=== PATIENT | female | born 1985 | race American Indian/Alaskan Native ===

== ENCOUNTER 2019-02-10 10:42 | Outpatient (CLI) | payer MEDICAID ==
--- NOTE | 2019-02-10 14:54 | Mammography Report ---
BILATERAL DIGITAL SCREENING MAMMOGRAMS WITH CAD INDICATION: Screening. COMPARISONS: None available. However, she indicated that she had had a previous mammogram in [place], [place]. FINDINGS: Craniocaudal and mediolateral oblique views of both breasts were obtained using 2-D digital acquisition. In addition to standard review, the examination was analyzed for possible abnormalities using a computer-assisted detection device (iCAD). The breast tissue is heterogeneously dense, which may obscure small masses. A partially circumscribed left focal asymmetry requires comparison with the prior mammogram or additi onal imaging. Additional bilateral circumscribed benign-appearing masses and heavily calcified masses . IMPRESSION: Comparison with the previous mammogram is required. We will attempt to obtain a prior mammogram for c omparison. If we do not obtain a prior mammogram within 30 days, a revised report will be issued jemma mmending a recall for additional imaging. Please be advised that the patient should not schedule an a ppointment for return until adequate time (at least 2 weeks) has passed breast to obtain the prior ma mmogram. BI-RADS CATEGORY 0: INCOMPLETE - NEED ADDITIONAL IMAGING EVALUATION AND/OR PRIOR MAMMOGRAMS FOR COMP ARISON Information is entered into a reminder system for a target due date for the next mammogram. The resul ts and recommendations were sent to the patient by mail. Signer Name: Fab Telles MD Signed: 02/10/2019 2:50 PM Workstation Name: [id number]
== END 2019-02-10 10:43 | disposition home or self-care (01) ==
LOC: SPVWC 10:42
PROVIDERS: ATTEND Family Medicine
DX: Z12.31 Encounter for screening mammogram for malignant neoplasm of breast (principal)
CPT/HCPCS: 77067

== ENCOUNTER 2019-07-21 07:36 | Day surgery (SDC) | payer MEDICAID ==
[2019-07-21] MEDS ORDERED: LACTATED RINGERS 1,000 ML ONE (08:25)
[2019-07-21] MEDS ORDERED: FAMOTIDINE 20 MG TAB PO NR (08:50)
[2019-07-21] MEDS ORDERED: LACTATED RINGERS 1,000 ML IV SCH (08:50)
[2019-07-21] MEDS ORDERED: MIDAZOLAM 2 MG/2 ML INJ IV NR (08:50)
--- NOTE | 2019-07-21 08:51 | Anesthesia Consultation ---
Anesthesia Consult and Med Hx Date of service: 07/21/19 - Airway Anesthetic Teeth Evaluation: Good ROM Head & Neck: Adequate Mental/Hyoid Distance: Adequate Mallampati Class: Class II Intubation Access Assessment: Good - Pulmonary Exam CTA: Yes - Cardiac Exam Cardiac Exam: No Murmur - Pre-Operative Health Status ASA Pre-Surgery Classification: ASA1 Proposed Anesthetic Plan: General - Central Nervous System Hx Psychiatric Problems: No - Other Systems Hx Cancer: No
--- NOTE | 2019-07-21 08:51 | Anesthesia Day of Surgery ---
Anesthesia Day of Surgery - Day of Surgery Patient Examined: Yes Patient H&P Reviewed: Yes Patient is NPO: Yes
--- NOTE | 2019-07-21 09:15 | Short Stay Summary ---
Short Stay Documentation Date of service: 07/21/19 Narrative H&P: Pt is a 34yo BF LMP 07/19/20 presents for surgical evaluation and treatment of endometrial polyps. She complained of prolonged heavy vaginal bleeding and pelvic u/s showed an enlarged uterus 10 x 7 x 5cm with endometrial polyp. She now presents for a Hysteroscopy with Polypectomy using Myosure. - History Principal diagnosis: Endometrial polyp H&P: obtained from office Past Medical History: No medical history Past Surgical History: , Other (breast surgery) Social history: no significant social history, - Allergies and Medications Current Medications: Allergies iodine Allergy (Verified 07/11/19 12:06) Unknown Home Medications Medication Instructions Recorded Confirmed Last Taken Type Ibuprofen [Motrin 800 MG tab] 800 mg PO Q8H PRN 07/11/19 07/11/19 Unknown History Active Medications Famotidine (Pepcid) 20 mg PO PREOP NR Lactated Ringer's (Lactated Ringers) 1,000 mls @ 100 mls/hr IV DIRECT JOSE Midazolam HCl (Versed) 2 mg IV PREOP NR Stop: 07/21/19 23:59 - Physical exam General appearance: no acute distress Integumentary: no rash HEENT: Atraumatic Lungs: Clear to auscultation Breasts: deferred Heart: Regular rate Gastrointestinal: normal Female Genitourinary: deferred Rectal Exam: deferred Extremities: no ischemia, No edema Neurological: Normal gait, Normal speech - Brief post op/procedure progress note Date of procedure: 07/21/19 Pre-op diagnosis: 1. Menorrhagia 2. Endometrial polyp Post-op diagnosis: same Procedure: 1. Hysteroscopy 2. Endometrial polypectomy Anesthesia: MAC Findings: A 10 weeks size uterus with multiple endometrial polyps. Menses. Surgeon: CLOVIS GREGORIO Estimated blood loss: 50-100ml Pathology: list (Endometrial polyps) Specimen disposition: to lab Condition: stable - Hospital course Hospital course: Unremarkable. - Disposition Condition at discharge: Good Disposition: - TO HOME OR SELFCARE - Discharge Diagnoses (1) Menorrhagia with irregular cycle Status: Chronic (2) Endometrial polyp Status: Resolved Short Stay Discharge Plan Activity: no restrictions Diet: regular Follow up with: JOSÉ LUIS KIMBROUGH MD [Primary Care Provider] - 7 Days CLOVIS GREGORIO MD [Staff Physician] - 7 Days Prescriptions: Ibuprofen [Motrin 800 MG tab] 800 mg PO Q8H PRN #30 PRN Reason: Pain, Moderate (4-6) medroxyPROGESTERone ACETATE [Provera] 10 mg PO QDAY #10 tablet
[2019-07-21] MEDS ORDERED: LIDOCAINE MPF (2%) 20 MG/1 ML VIAL 5 ML ONE (09:28)
[2019-07-21] MEDS ORDERED: fentaNYL 100 MCG/2 ML INJ ONE (09:28)
[2019-07-21] MEDS ORDERED: propofoL 200 MG/20 ML VIAL IV ONE (09:28)
[2019-07-21 09:47] LABS: Hematocrit 31.2 % (30.3-42.9); Hemoglobin 9.8 gm/dl (10.1-14.3)
[2019-07-21] MEDS ORDERED: ceFAZolin/Water 2 GM/20 ML 2 GM/20 ML SYRINGE IV NR (10:00)
[2019-07-21] MEDS ORDERED: ONDANSETRON 4 MG/2 ML INJ ONE (10:32)
--- NOTE | 2019-07-21 10:50 | Operative Report ---
Operative Report Operative Report: Date of procedure: 07/21/2019 Pre-operative diagnosis: 1. Menorrhagia 2. Endometrial polyps Post-operative diagnosis: Same Procedure name(s): 1. Hysteroscopy 2. Polypectomy using Myosure device Surgeon: Gaston Marcum MD Rib Chopper: None Anesthesia: GET EBL: Minimal Findings: An enlarged uterus with multiple endometrial polyps. Menses present. Procedure: After the patient was correctly identified, she was prepped and draped in the usual sterile fashion and placed in the dorsolithotomy position. First the bladder was emptied using a straight catheter, and the speculum was placed in the vaginal vault and the anterior lip of the cervix was grasped using a single-tooth tenaculum. The cervical os was sequentially dilated, and the hysteroscope was introduced into the cervical canal. Visualization of endometrial cavity found multiple endometrial polyps. The Myosure device was introduced into the endometrial cavity and all the endometrial polyps were removed and sent to pathology. At this time the procedure was considered complete. All instruments removed from the uterine cavity. The patient tolerated the procedure well and was transported to recovery in stable condition.
[2019-07-21] MEDS: HYDROmorphone 1 MG/1 ML INJ IV PRN ×2 (11:00→11:20)
[2019-07-21] MEDS ORDERED: diphenhydrAMINE 50 MG/ML VIAL ONE (11:13)
[2019-07-21] MEDS ORDERED: ONDANSETRON 4 MG/2 ML INJ IV PRN (11:30)
[2019-07-21] MEDS ORDERED: diphenhydrAMINE 50 MG/ML VIAL IV NR (11:30)
[2019-07-21 11:59] VITALS: BP 105/75
--- NOTE | 2019-07-21 12:28 | Post Anesthesia Evaluation ---
- Post Anesthesia Evaluation Patient Participated: Yes Airway Patent: Yes Stable Respiratory Function: Yes Nausea/Vomiting: No Temp > 96.8F: Yes Pain Manageable: Yes Adequeate Hydration: Yes Anesthesia Complications: No
== END 2019-07-21 12:25 | disposition home or self-care (01) ==
LOC: OR 07:36
PROVIDERS: ATTEND Obstetrics & Gynecology
DX: N92.1 Excessive and frequent menstruation with irregular cycle (principal); N84.0 Polyp of corpus uteri; G43.909 Migraine, unspecified, not intractable, without status migrainosus; Z91.041 Radiographic dye allergy status; Z79.899 Other long term (current) drug therapy; Z98.890 Other specified postprocedural states
CPT/HCPCS: 36415; 58558; 81025; 85014; 85018; 88305; C1782; J1170; J1200; J2250; J2405; J2704; J3010; J7120

== ENCOUNTER 2020-11-04 12:35 | Emergency (ER) | payer MEDICAID | END 2020-11-04 13:52 | disposition left against medical advice (07) | LOC: ED 12:35 | DX: O03.9 Complete or unspecified spontaneous abortion without complication (principal); Z3A.01 Less than 8 weeks gestation of pregnancy; Z53.21 Procedure and treatment not carried out due to patient leaving prior to being seen by health care provider ==